=== PATIENT | male | born 2000 | race Hispanic/Latino ===

== ENCOUNTER 2020-08-29 10:00 | Emergency (ER) | payer BC, SELFPAY ==
[2020-08-29 10:10] VITALS: BP 155/78; PULSE 90; RESP 16; TEMP 36.4; O2SAT 100
--- NOTE | 2020-08-29 10:17 | ED.EYEPROB ---
HPI - Eye Problem General Chief complaint: Eye Problems Stated complaint: Right Eye Pain Time Seen by Provider: 08/29/20 10:17 Source: patient, RN notes reviewed and old records reviewed Mode of arrival: ambulatory Limitations: no limitations History of Present Illness HPI Narrative: 20 year old male who presents to express care with swelling to his right eye since Sunday with it being swollen shut. Patient denies any drainage to right eye, no pain or any itching to his right eye or any changes in his vision. 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 Patient does not wear contact lenses. MD chief complaint: eye redness and other (eye swelling) Onset (ago): day(s) Onset description: gradual Duration: constant Location: right eye Eye Symptoms: redness and other (swelling) Treatments Prior to Arrival: none Related Data Allergies Allergy/AdvReac Type Severity Reaction Status Date / Time No Known Allergies Allergy Unverified 04/19/17 14:59 Review of Systems Review of Systems: Narrative: CONSTITUTIONAL: Denies fever, chills, or sweats. EYES: Denies visual changes, positive, redness, and swelling to his right eye, no drainage noted, no acute pain just irritation ENT: Denies rhinorrhea, congestion, sore throat, or otalgia. CARDIOVASCULAR: Denies chest pain, palpitations, or edema. RESPIRATORY: Denies cough or dyspnea. GASTROINTESTINAL: Denies abdominal pain, nausea, vomiting, or diarrhea. GENITOURINARY: Denies dysuria or hematuria. SKIN: Denies rash or itching. MUSCULOSKELETAL: Denies back pain, joint pain, or myalgia. NEUROLOGIC: Denies headache, numbness, or weakness. PSYCHIATRIC: Denies anxiety or depression. 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 There is no relevant family history pertinent to the presenting complaint Exam Narrative: Exam Narrative: GENERAL: Well-appearing, well-nourished, and in no acute distress. HEAD: Normocephalic, atraumatic. EYES: PERRLA and EOMI.swelling to his right eye and eyelid, no drainage noted redness of sclera conjunctiva pink, no lesions noted internal or external eyelids, Patient denies any sharp pain to his eye or any changes in vision. ENT: Nares clear, no rhinorrhea or epistaxis. Mucous membranes moist. NECK: Supple.no adenopathy CHEST: Clear to auscultation. No respiratory distress.SAO2 100% on room air HEART: Regular rate and rhythm. No murmur heard. Normal peripheral pulses. ABDOMEN: Soft, nontender, nondistended, normal active bowel sounds. EXTREMITIES: Normal range of motion. No edema. SKIN: Warm, dry, no rash. NEURO: No focal deficits. Alert and oriented x3. Course Vital Signs Vital signs: Vital Signs Temperature 36.4 C 08/29/20 10:10 Pulse Rate 90 08/29/20 10:10 Respiratory Rate 16 08/29/20 10:10 Blood Pressure 155/78 H 08/29/20 10:10 Pulse Oximetry 100 08/29/20 10:10 Temperature 36.4 C 08/29/20 10:10 Pulse Rate 90 08/29/20 10:10 Respiratory Rate 16 08/29/20 10:10 Bloo
== END 2020-08-29 10:54 | disposition home or self-care (01) ==
PROVIDERS: Emergency Provider Registered Nurse
DX: T15.11XA Foreign body in conjunctival sac, right eye, initial encounter (principal); X58.XXXA Exposure to other specified factors, initial encounter
CPT/HCPCS: 65205; 99213; A9270; G0463

== ENCOUNTER 2024-10-07 16:17 | Emergency (ER) | payer OTHER, SELFPAY ==
--- NOTE | 2024-10-07 16:29 | ED.EYEPROB ---
HPI - Eye Problem General Chief complaint: Eye Problems Stated complaint: R Eye Irritation Time Seen by Provider: 10/07/24 16:37 Source: patient Mode of arrival: ambulatory Limitations: no limitations History of Present Illness HPI Narrative: 24-year-old male presented for complaint of irritation to the right eye. Onset 3 days. Endorses 'blister' to the inner right eye and bloodshot eye. He denies specific injury. He states he may have rubbed the eye while he was working outside and something got in the eye. He also says he had an eye test for work and the equipment may have been contaminated. Denies photophobia, eye pain, discharge, or vision changes. States he has an appt with [facility] but not until 10/17. Does not wear contact lenses. chief complaint: eye pain Related Data Allergies Allergy/AdvReac Type Severity Reaction Status Date / Time No Known Allergies Allergy Verified 10/07/24 16:18 Review of Systems Review of Systems: CONSTITUTIONAL: Denies body aches, fever, chills EYES:Endorses swelling, redness to right eye; Denies visual changes, FB sensation, photophobia ENT: Denies rhinorrhea, congestion, sore throat, or otalgia. RESPIRATORY: Denies cough or dyspnea. SKIN: Denies rash, itching, or wounds. MUSCULOSKELETAL: Denies back pain, joint pain, or myalgia. 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 Please see nursing chart for further information. There is no relevant family history pertinent to the presenting complaint Exam Narrative: GENERAL: Well-appearing HEAD: Normocephalic, atraumatic. EYES: Significant right conjunctival injection, mild eye lid swelling. Medial eye with 2 cysts approx 1mm. No drainage. PERRLA, EOMI. Lid eversion shows no FB. ENT: Mucous membranes pink and moist. No rhinorrhea. CHEST: even and nonlabored SKIN: Warm, dry, no rash. Normal skin turgor. NEURO: No focal deficits. Alert and oriented x3 PSYCH: Normal affect. Course Course Emergency Course: Patient is aware of diagnosis, understands and agrees to treatment plan. Anticipatory guidance given. Patient agrees to follow-up as directed and is aware of reasons to seek care at the emergency department. Portions of this record may have been created with voice recognition software Level of Care: Express Care Visit Vital Signs Vital signs: Vital Signs Temperature 98 F 10/07/24 16:30 Pulse Rate 85 10/07/24 16:30 Respiratory Rate 14 10/07/24 16:30 Blood Pressure 132/76 10/07/24 16:30 Pulse Oximetry 100 10/07/24 16:30 Oxygen Delivery Room Air 10/07/24 16:30 Temperature 98 F 10/07/24 16:30 Pulse Rate 85 10/07/24 16:30 Respiratory Rate 14 10/07/24 16:30 Blood Pressure 132/76 10/07/24 16:30 Pulse Oximetry 100 10/07/24 16:30 Oxygen Delivery Room Air 10/07/24 16:30 Procedures FB Removal Eye Foreign Body #1: Foreign Body Removal Date: 10/07/24 Location: eye (R) Topical anesthetic used: tetracaine Evidence of corneal penetration: No Procedure performed under: other (reyez lamp) Patient tolerated procedure: well and no complications Foreign Body Removal Narrative: right eye was anesthetized with 1 drop of tetracaine and anesthesia was achieved. Lid was everted and examined for foreign body. No foreign body, corneal abrasion, or ulceration identified with Reyez lamp. The eye was flushed with eye wash. Pt tolerated procedure well. MDM - Eye Problem MDM Narrative Medical decision making narrative: Discussed physical exam findings c/w conjunctivitis. No corneal abrasion/ulceration or FB noted on ryeez lamp exam. Will send erythromycin ointment and Ketoralac drops. Advised supportive measures and signs/symptoms to go to the ER. Pt is appropriate for outpt treatment and f/u. Provided with ophtho referrals. Differential Diagnosis Differential diagnosis: Likely corneal abrasion, conjunctivitis, acute iritis and other Discharge Plan Discharge Clinical Impression: Red eye Patient Disposition: Home Condition: Stable Instructions: Antibiotic Form, Conjunctivitis (ED) Additional Instructions: Avoid touching or rubbing your eye. Use over the counter lubricating eye drops as needed for irritation Use a warm or cool washcloth on your eye for comfort Use eyedrops as directed Practice good handwashing and hygiene to prevent spread of infection Do not wear contact lenses. Use a new pair after the infection is resolved. You may take Tylenol or ibuprofen for pain Follow-up with PCP or grain roaster if condition is not improving in 2-3days. Go to the emergency room if you have severe pain or pressure behind your eye, difficulty seeing, or other severe symptoms [facility] [phone] [facility] [phone] [facility] [phone] [facility] [phone] Patient Language: Syrian Prescriptions: New ketorolac 0.5 % drops 1 drp RIGHT EYE Q6H PRN (Reason: pain) Qty: 3 0RF erythromycin 5 mg/gram (0.5 %) ointment 1 applic RIGHT EYE Q4HWA 7 Days Qty: 3.5 0RF Follow-up/Referrals: PHYSICIAN,NETWORK FIELD ENGINEER [Primary Care Provider] - Time of Disposition: 16:59
[2024-10-07 16:30] VITALS: BP 132/76; PULSE 85; RESP 14; TEMP 36.6; O2SAT 100
[2024-10-07] MEDS: TETRACAINE HCL 0.5% OPHTH SOLN 4 ML BTL RIGHT EYE (16:47)
[2024-10-07] MEDS: FLUORESCEIN SOD 1 MG/STRIP RIGHT EYE (16:48)
[2024-10-07] MEDS: DACRIOSE EYE IRRIGATION 118 ML BOTTLE RIGHT EYE (16:48)
== END 2024-10-07 17:00 | disposition home or self-care (01) ==
PROVIDERS: Emergency Provider Nurse Practitioner Family
DX: H57.89 Other specified disorders of eye and adnexa (principal)
CPT/HCPCS: 99213; A9270; G0463